=== PATIENT | female | born 2005 | race Asian ===

== ENCOUNTER 2024-01-05 16:59 | Emergency (ER) | payer BC, SELFPAY ==
--- NOTE | ~2024-01-05 | CT_ITS ---
EXAMINATION: CT ABDOMEN AND PELVIS WITHOUT CONTRAST CLINICAL INFORMATION: Abdominal pain COMPARISON: None available. TECHNIQUE: Multidetector volumetric imaging was performed from the superior aspect of the liver through the pubic symphysis. Sagittal and coronal reformatted images were obtained on the technologist's workstation. This CT examination was performed using dose optimization techniques as appropriate, variously including the following: *Automated exposure control *Adjustment of mA and/or kV according to patient size (this includes techniques or standardized protocols for targeted exams where dose is matched to indication/reason for exam; i.e. extremities or head) *Use of iterative reconstruction technique DLP: 239 mGy-cm FINDINGS: LUNG BASES: The visualized lung bases are unremarkable. LIVER, GALLBLADDER, AND BILIARY TREE: The liver is normal in size, shape, and attenuation. No focal hepatic lesion or biliary ductal dilatation is present. The gallbladder is unremarkable with no evidence of radiopaque gallstones, gallbladder wall thickening, or obvious pericholecystic inflammatory changes. PANCREAS: Unremarkable. SPLEEN: Unremarkable. ADRENAL GLANDS: Unremarkable. KIDNEYS AND URETERS: The kidneys are normal in size, shape, and attenuation. No hydronephrosis, hydroureter, or calculi seen. No perinephric stranding. BLADDER: There is mild symmetric thickening of the bladder wall. Please correlate with urinalysis for possible UTI. GASTROINTESTINAL TRACT: Stomach is filled with food contents. A moderate stool burden is present throughout the colon. The small and large bowel are otherwise unremarkable. No evidence of bowel obstruction. The appendix is unremarkable. ABDOMINAL WALL: No significant hernia is appreciated. LYMPH NODES: Normal. VASCULAR: Unremarkable. PELVIC VISCERA: The uterus and adnexa are unremarkable. OSSEOUS STRUCTURES: Unremarkable. CT/CT abdomen pelvis wo IV con IMPRESSION: 1. A cause for the patient's abdominal pain has not been found. 2. Incidental note made of mild symmetric thickening of the bladder wall. Please correlate with urinalysis for possible UTI. 3. Moderate colonic stool burden. Fleischner guidelines were followed.
--- NOTE | ~2024-01-05 | CT_ITS ---
EXAMINATION: CT ANGIOGRAM OF THE CHEST WITH AND WITHOUT CONTRAST (CT PULMONARY ANGIOGRAM FOR PE) CLINICAL INFORMATION: Reason for Exam Right flank/chest pain, control pills R/O PE COMPARISON: None available. TECHNIQUE: Prior to contrast administration, noncontrast localization images were obtained. Subsequently, multidetector volumetric imaging was performed from the thoracic inlet to below the diaphragms following the administration of 65 mL Omnipaque 350 intravenous contrast. No contrast reaction reported Sagittal, coronal, and MIP oblique sagittal reformatted images were obtained on the CT workstation, uploaded to PACS, and reviewed. This CT examination was performed using dose optimization techniques as appropriate, variously including the following: *Automated exposure control *Adjustment of mA and/or kV according to patient size (this includes techniques or standardized protocols for targeted exams where dose is matched to indication/reason for exam; i.e. extremities or head) *Use of iterative reconstruction technique Total exam dose-length product 139 mGy-cm FINDINGS: QUALITY OF STUDY/CONTRAST BOLUS: Satisfactory. PULMONARY ARTERIES: No pulmonary emboli. THORACIC AORTA: No aneurysm. LUNG: No focal consolidation, nodules or masses. PLEURA: No pleural effusion or pneumothorax. MEDIASTINUM: Normal heart size. No pericardial effusion. No hilar or mediastinal lymphadenopathy. No evidence of septal bowing or right heart strain. CORONARY ARTERY CALCIFICATION: None visualized on this study. CHEST WALL/AXILLA: No axillary or internal mammary lymphadenopathy. OSSEOUS STRUCTURES: No acute or suspicious osseous abnormality. UPPER ABDOMEN: Unremarkable. No reflux of contrast into the hepatic veins to suggest elevated right heart pressures. CT/CT angio chest PE protocol IMPRESSION: Normal CT of the chest. No evidence of pulmonary embolism. VTE: negative.
[2024-01-05 17:47] VITALS: BP 113/79; PULSE 75; RESP 20; TEMP 36.4; O2SAT 100; BMI 17.5
--- NOTE | 2024-01-05 17:47 | ED.GENADULT ---
HPI - General Adult General Chief complaint: Abdominal Pain Stated complaint: abd pain and recurrent UTI Time Seen by Provider: 01/06/24 00:18 Source: patient and other (Friend, Manuelito) Mode of arrival: ambulatory Limitations: no limitations History of Present Illness HPI narrative: 18-year-old female history of PCOS who presents emergency department for evaluation right-sided abdominal and flank pain. The patient states that on Wednesday and Wednesday she developed nausea, vomiting, fever, chills and diarrhea. She states that these symptoms lasted for 2 days and then resolved. This is she then developed right sided abdominal pain and right-sided flank pain. She states the pain is a constant, stabbing sensation which came on gradually and then got progressively worse. She states that the pain is now 9/10. She states that this is a 1st episode of this type of pain. She states that she believes that she has a urinary tract infection and that she gets these frequently. She states that her last urinary infection was 1 month prior and she completed a course of Macrobid. She states that when she gets a urinary tract infection she is often told that her initial urinalysis is negative but then her urine cultures positive. She states that she did grow E coli in her urine 1 month prior. She denied dysuria but she does have urgency and frequency. She states that she does have a vaginal discharge but this is a normal discharge for her. The patient advised to go to the hospital by health services. She denied chest pain, shortness of breath or dyspnea on exertion. Patient has not noticed any rash in the area where she has pain. Related Data Previous Rx's ?Medication ?Instructions ?Recorded cefuroxime axetil 250 mg tablet 250 mg PO Q12H 5 days #10 tabs 01/06/24 phenazopyridine 100 mg tablet 100 mg PO TID PRN painful 01/06/24 (Pyridium) urination, bladder pain #10 tabs Allergies Allergy/AdvReac Type Severity Reaction Status Date / Time No Known Allergies Allergy Verified 01/05/24 17:49 Review of Systems Review of Systems: Yes all other systems are reviewed and are negative FORMERLY [facility], [facility] Past Medical History FORMERLY [facility], [facility]–1983 Narrative: Past medical history: PCOS. Social history: She is a [employer] student Social History Social History Advance Directives: No Advance Directives Information Provided: Yes Do you have a plan to hurt others: No Plan Physical Exam ED Vital Signs: Vital Signs - 24 hr 01/05/24 17:47 01/05/24 22:07 01/06/24 00:00 Temperature 97.6 F 97.9 F 98.3 F Pulse Rate 75 80 75 Respiratory Rate 20 16 16 Blood Pressure 113/79 106/70 110/56 L Pulse Oximetry 100 99 99 Oxygen Delivery Method Room Air Room Air Room Air 01/06/24 02:00 01/06/24 03:53 Temperature 98.7 F 98.3 F Pulse Rate 76 68 Respiratory Rate 18 16 Blood Pressure 100/60 99/50 L Pulse Oximetry 100 98 Oxygen Delivery Method Room Air Room Air BMI result Body Mass Index 17.5 Vital signs were normal, O2 saturation was 100% on room air Exam: General: Awake, alert in no distress Head: Normocephalic, atraumatic EENT: PERRL, Lids normal, sclera normal, conjunctiva normal, nose normal , ears normal, throat without erythema or exudates Neck: Supple, no adenopathy Lung: breath sounds symmetric, no wheezing, rales or rhonchi Chest: symmetric movement, nontender Heart: regular rate and rhythm, normal S1, S2 no murmurs or rubs Abdomen: soft, no right lower quadrant tenderness, mid right-sided abdominal tenderness, no right upper quadrant tenderness. No rebound guarding Back: no vertebral tenderness, CV a tenderness, no left-sided CVA tenderness Extremities: no deformities, moves all extremities symmetrically Neuro: Awake, alert, oriented, normal speech Psych: Pleasant, cooperative Course Course Course Narrative: This is an RME: Additional HPI, ROS, PE not included below will be deferred to primary provider. 18 yo f with pmhx of UTIs, presents with r sided flank and back pain since Wednesday, worsening today. Reports fevers, chills, nausea, vomiting, diarrhea over the weekend. Reports pain with deep breathing and is on control. Reevaluation(s) Reevaluation #1: The patient was signed out to me by the previous emergency room doctor pending the results of a CT pulmonary angiogram to help assess for a cause of right-sided pain. The CT pulmonary angiogram has been read as negative. The patient will be discharged according to the original instructions which include a prescription for antibiotics for a possible UTI. Time: 05:02 Medications Administered Discontinued Medications Generic Name Dose Route Start Last Admin Trade Name Julioq PRN Reason Stop Dose Admin Cefuroxime Axetil 250 mg 01/06/24 00:51 01/06/24 01:33 Cefuroxime Axetil 250 Mg Tablet PO 01/06/24 00:52 250 mg ONCE ONE Administration Sodium Chloride 1,000 mls @ 999 mls/hr 01/06/24 01:34 01/06/24 01:44 Ns IV 01/06/24 02:34 999 mls/hr .Q1H1M STA Administration Ibuprofen 400 mg 01/06/24 00:51 01/06/24 01:43 Ibuprofen 400 Mg Tablet PO 01/06/24 00:52 Not Given ONCE STA Iohexol 65 ml 01/06/24 02:01 01/06/24 02:01 Iohexol 350 Mg/Ml 100 Ml Infus..Btl IV 01/06/24 02:02 65 ml ONCE ONE Administration Ketorolac Tromethamine 15 mg 01/06/24 01:34 01/06/24 01:42 Ketorolac Tromethamine 15 Mg/Ml Vial IVPUSH 01/06/24 01:35 15 mg ONCE STA Administration Ondansetron HCl 4 mg 01/06/24 01:09 01/06/24 01:18 Ondansetron Odt 4 Mg Tab.Rapdis TRANSLINGU 01/06/24 01:10 4 mg ONCE STA Administration Phenazopyridine HCl 100 mg 01/06/24 00:51 01/06/24 01:32 Phenazopyridine Hcl 100 Mg Tablet PO 01/06/24 00:52 100 mg ONCE ONE Administration Medical Decision Making Medical Decision Making MDM Narrative: 18-year-old female history of PCOS who presents emergency department for evaluation right-sided abdominal and flank pain came on gradually 2 days prior got progressively worse and is currently 9/10. Patient had a prodrome normal illness with nausea, vomiting, fever, chills and diarrhea which resolved. Patient states she gets frequent urinary tract infections and believes that she has a urinary tract infection. Patient is on control pills. Vital signs were normal. Physical examination revealed no right lower quadrant or right upper quadrant tenderness but she does have mid right-sided abdominal tenderness and right-sided CVA tenderness. Patient had no rash noted in the area of her pain. Differential diagnosis: ?Includes but is not limited to renal colic, ureteral colic, ureteral stone, appendicitis, cholecystitis, pulmonary embolism Following evaluation was ordered: CBC, CMP, magnesium, troponin, quantitative beta-hCG, urinalysis, CT scan of the abdomen pelvis without IV contrast, CT pulmonary angiogram PE protocol Course: 01:46 My interpretation patient's laboratory evaluation as follows: Normocytic anemia with an H&H of 12 and 34.6. Elevated AST and ALT 32 and 55. High sensitive troponin I below detectable limits. Bacteria and WBCs. Quantitative beta-hCG was below detectable limits. CT scan of the abdomen pelvis without IV contrast did not reveal a clear cause for the patient's severe right flank pain but did reveal bladder thickening which could be consistent with urinary tract infection. No workup so far has not revealed a clear etiology for the patient's severe right flank pain. Given the fact the patient is on control pills and also has PCOS , she is at increased risk for venous thromboemboli, therefore I ordered a CT pulmonary angiogram to rule out pulmonary embolism. Patient was given Toradol 15 mg IV and Zofran 4 mg IV for her pain and nausea. Patient was also given cefuroxime 250 mg orally for possible urinary tract infection 03:32 At the end of my shift, the patient's CT pulmonary angiogram PE protocol result is pending. Therefore the patient's care was turned over to my colleague, Dr. Yoel Topete. Admission/Observation Consideration of admission/observation: Escalation of care including admission/observation considered Lab Data MDM Lab Attestation statement: I reviewed the patient's lab results. 01/05/24 18:28 01/05/24 18:28 Labs: Lab Results 01/05/24 01/05/24 01/05/24 Range/Units 18:28 18:29 22:10 WBC 9.6 (4.8-10.8) X10*3/uL RBC 3.85 L (4.20-5.50) X10*6/uL Hgb 12.0 (12.0-16.0) g/dl Hct 34.6 L (37.0-47.0) % MCV 89.9 (80.0-98.0) fL MCH 31.2 (27.0-33.0) pg MCHC 34.7 (31.0-35.0) g/dl RDW 10.9 L (11.0-16.0) % Plt Count 331 (160-400) X10*3/uL MPV 8.2 L (9.4-12.3) fL Immature Gran % (Auto) 0.2 (0.0-0.4) % Neut % (Auto) 61.4 (45-73) % Lymph % (Auto) 27.1 (20-40) % [place] % (Auto) 7.0 (2-11) % Eos % (Auto) 3.7 (0-4) % Baso % (Auto) 0.6 (0-2) % Lymph # (Auto) 2.6 (1.2-4.9) X10*3/uL [place] # (Auto) 0.7 (0.1-1.2) X10*3/uL Eos # (Auto) 0.4 (0.0-0.4) X10*3/uL Baso # (Auto) 0.1 (0.0-0.2) X10*3/uL Abs Immat Gran (auto) 0.02 (0.00-0.03) X10*3/uL Absolute Neuts (auto) 5.9 (2.0-8.3) x10*3/uL Absolute Nucleated RBC 0.000 (0.0-0.012) X10*3/uL Nucleated RBC % (auto) 0.0 (0.0-0.2) /100WBC Sodium 138 (135-145) mmol/L Potassium 3.7 (3.3-5.1) mmol/L Chloride 105 (96-108) mmol/L Carbon Dioxide 25 (22-29) mmol/L Anion Gap 12 (12-20) BUN 8 L (9-16) mg/dL Creatinine 0.69 (0.5-1.4) mg/dL Estim Creat Clear Calc 91.7 Estimated GFR > 60 Random Glucose 86 (60-115) mg/dL Calcium 9.5 (8.4-10.2) mg/dL Magnesium 2.2 (1.6-2.6) mg/dL Total Bilirubin 0.2 (0.0-1.0) mg/dL AST 32 H (5-31) U/L ALT 55 H (0-31) U/L Alkaline Phosphatase 46 (39-117) U/L Troponin I High Sens < 2.7 (<3.5-17.0) ng/L C-Reactive Protein 0.42 (< or = 0.50) mg/dL Total Protein 8.0 (6.5-8.0) g/dL Albumin 4.4 (3.5-5.0) g/dL Beta HCG, Quant < 2 mIU/mL Urine Color Yellow Urine Appearance Clear Urine pH 7.0 (5.0-9.0) Ur Specific [place] <= 1.005 (1.005-1.025) Urine Protein Negative (Neg-Trace) mg/dL Urine Glucose (UA) Negative (Negative) mg/dL Urine Ketones Negative (Negative) mg/dL Urine Blood Negative (Negative) Urine Nitrite Negative (Negative) Ur Leukocyte Esterase Trace H (Negative) Urine RBC 0-2 (0-2) /HPF Urine WBC 0-5 (0-5) /HPF Ur Squamous Epith Cells 0-2 (0-2) /HPF Urine Bacteria None Seen (None Seen) Hyaline Casts 0-2 (0-2) /LPF Independent Interpretation I performed an independent interpretation of an: EKG Interpretation: My independent interpretation the patient's 12 EKG she done at 18:19 hours is as follows: Normal sinus rhythm rate of 66, normal ME interval, QRS duration QTC interval, no ST segment elevation, no ST segment depression, this is a normal EKG Radiology Impression Discussion of test interpretation with radiology: I have reviewed the radiologist's reading. Radiologist Impression: CT abdomen pelvis wo IV con IMPRESSION: 1. A cause for the patient's abdominal pain has not been found. 2. Incidental note made of mild symmetric thickening of the bladder wall. Please correlate with urinalysis for possible UTI. 3. Moderate colonic stool burden. Fleischner guidelines were followed. Dictated By: Santino Serna MD Prescription Management I considered prescription management with: Pain Medication and Antibiotic Discharge Plan Discharge Clinical Impression: Bladder infection, Right flank pain Patient Disposition: Home, Self-Care Instructions: Urinary Tract Infection in Women (ED) Additional Instructions: Your white blood cell count was normal Your red blood cell counts revealed mild anemia, this may improve if you take an iron supplement daily. Your 12 EKG was normal. Your urine results did not reveal any white blood cells or bacteria in your urine. The CT scan of your abdomen and pelvis your oral contrast did not reveal a clear cause for your right-sided flank pain however you do have thickening of your bladder wall and this is sometimes consistent with a bladder infection (cystitis) Take ibuprofen 200 mg pills, 2 pills every 6 hours as needed for pain or fever. Take Tylenol (acetaminophen) 500 mg pills, 2 pills every 6 hours as needed for pain or fever. Take cefuroxime 250 mg pills, 1 pill every 12 hours for 5 days. Take Pyridium(phenazpyridine) 100 mg pills, 1 pill 3 times a day as needed for bladder pain/burning sensation with urination. Follow-up with your doctor in 2 days. Please return to the emergency department if your symptoms get worse or if you develop any symptoms that are concerning to you. If you developed a rash in the area where your having pain then you may have shingles. As soon as you developed a rash you should follow-up with health services to get started on valacyclovir which is an anti shingles medication. You can check your urine culture result on the patient portal. The culture result should be come back in 2-3 days. If you do not grow any bacteria in your urine you can stop taking the cefuroxime. Prescriptions: New cefuroxime axetil 250 mg tablet 250 mg PO Q12H 5 Days Qty: 10 0RF phenazopyridine [Pyridium] 100 mg tablet 100 mg PO TID PRN (Reason: painful urination, bladder pain) Qty: 10 0RF Print Language: Faroese
--- NOTE | 2024-01-05 17:49 | ECG_ITS ---
Test Reason : CHEST PAIN Blood Pressure : / mmHG Vent. Rate : 066 BPM Atrial Rate : 066 BPM P-R Int : 130 ms QRS Dur : 082 ms QT Int : 388 ms P-R-T Axes : 075 057 049 degrees QTc Int : 406 ms Normal sinus rhythm Normal ECG No previous ECGs available Referred By: Nasima Morales Electronically Signed By:LILLIE SALES MD
[2024-01-05 18:33] LABS: MANUAL DIFF FLAG NO
[2024-01-05 18:34] LABS: Basophils Absolute Auto 0.1 X10*3/uL (0.0-0.2); Basophils Percent Auto 0.6 % (0-2); Eosinophils Absolute Auto 0.4 X10*3/uL (0.0-0.4); Eosinophils Percent Auto 3.7 % (0-4); Hematocrit 34.6 % (37.0-47.0); Imm Gran Abs Auto 0.02 X10*3/uL (0.00-0.03); Imm Gran Pct Auto 0.2 % (0.0-0.4); Lymphocytes Absolute Auto 2.6 X10*3/uL (1.2-4.9); Lymphocytes Percent Auto 27.1 % (20-40); Mean Corpuscular HGB Conc 34.7 g/dl (31.0-35.0); Mean Corpuscular Hemoglobin 31.2 pg (27.0-33.0); Mean Corpuscular Volume 89.9 fL (80.0-98.0); Mean Platelet Volume 8.2 fL (9.4-12.3); Monocytes Absolute Auto 0.7 X10*3/uL (0.1-1.2); Neutrophils Absolute Auto 5.9 x10*3/uL (2.0-8.3); Neutrophils Percent Auto 61.4 % (45-73); Platelet Count 331 X10*3/uL (160-400); Red Blood Count 3.85 X10*6/uL (4.20-5.50); Red Cell Distribution Width 10.9 % (11.0-16.0); White Blood Count 9.6 X10*3/uL (4.8-10.8)
[2024-01-05 19:08] LABS: Alanine Aminotransferase 55 U/L (0-31); Albumin Level 4.4 g/dL (3.5-5.0); Alkaline Phosphatase 46 U/L (39-117); Anion Gap 12 (12-20); Aspartate Amino Transferase 32 U/L (5-31); Bilirubin Total 0.2 mg/dL (0.0-1.0); Blood Urea Nitrogen 8 mg/dL (9-16); Calcium 9.5 mg/dL (8.4-10.2); Carbon Dioxide 25 mmol/L (22-29); Chloride 105 mmol/L (96-108); Creatinine Clr Calc Pharmacy 91.7; Estimated Glomerular Filt Rate > 60; Glucose Random 86 mg/dL (60-115); Magnesium 2.2 mg/dL (1.6-2.6); Potassium 3.7 mmol/L (3.3-5.1); Sodium 138 mmol/L (135-145)
[2024-01-05 19:10] LABS: Troponin-I High Sensitivity < 2.7 ng/L (<3.5-17.0)
[2024-01-05 19:23] LABS: HCG Quantitative < 2 mIU/mL
[2024-01-05 22:07] VITALS: BP 106/70; PULSE 80; RESP 16; TEMP 36.6; O2SAT 99
[2024-01-05 22:21] LABS: Appearance Urine Clear; Color Urine Yellow; Glucose Urine UA Negative (Negative); Leukocyte Esterase Urine Trace (Negative); Nitrite Urine Negative (Negative); Specific Gravity - Urine <= 1.005 (1.005-1.025); UMIC TRIGGER UACC YES; Urine Blood Negative (Negative); Urine Ketones Negative (Negative); Urine Protein Negative (Neg-Trace)
[2024-01-05 22:23] LABS: Bacteria Urine None Seen (None Seen); Hyaline Casts Urine 0-2 /LPF (0-2); RBC Urine 0-2 /HPF (0-2); Squamous Epithelial Cell Urine 0-2 /HPF (0-2); WBC Urine 0-5 /HPF (0-5)
[2024-01-06] VITALS: BP 110/56; PULSE 75; RESP 16; TEMP 36.8; O2SAT 99
[2024-01-06] MEDS: Ondansetron ODT 4 MG TAB.RAPDIS TRANSLINGU (01:18)
[2024-01-06] MEDS: Phenazopyridine HCL 100 MG TABLET PO (01:32)
[2024-01-06] MEDS: cefuroxime axetiL 250 MG TABLET PO (01:33)
[2024-01-06] MEDS: Ketorolac Tromethamine 15 MG/ML VIAL IVPUSH (01:42)
[2024-01-06] MEDS: 0.9 % Sodium Chloride 1,000 ML 999 ML IV (01:44)
[2024-01-06 02:00] VITALS: BP 100/60; PULSE 76; RESP 18; TEMP 37.1; O2SAT 100
[2024-01-06] MEDS: iohexoL 350 MG/ML 100 ML INFUS..BTL 65 ML IV (02:01)
[2024-01-06 03:44] LABS: C Reactive Protein 0.42 mg/dL (< or = 0.50)
[2024-01-06 03:53] VITALS: BP 99/50; PULSE 68; RESP 16; TEMP 36.8; O2SAT 98
[2024-01-06 05:08] VITALS: BP 99/50; PULSE 68; RESP 16; TEMP 36.8; O2SAT 98
== END 2024-01-06 05:09 | disposition home or self-care (01) ==
PROVIDERS: Physician Assistant; Emergency Provider Emergency Medicine
DX: N30.90 Cystitis, unspecified without hematuria (principal); R10.2 Pelvic and perineal pain; R11.2 Nausea with vomiting, unspecified; R07.89 Other chest pain; R50.9 Fever, unspecified; Z87.440 Personal history of urinary (tract) infections; Z79.899 Other long term (current) drug therapy
CPT/HCPCS: 36415; 71275; 74176; 80053; 81001; 83735; 84484; 84702; 85025; 86140; 93005; 96374; 99284; 99285; J1885; Q9967

== ENCOUNTER → 2024-01-05 17:49 | Outpatient (BNV) | payer BC, SELFPAY | PROVIDERS: Emergency Provider Emergency Medicine; Visit Provider Internal Medicine Cardiovascular Disease | DX: R07.9 Chest pain, unspecified (principal) | CPT/HCPCS: 93010 ==